=== PATIENT | female | born 1970 | race Caucasian/White ===

== ENCOUNTER → 2016-08-30 | Outpatient (CLI) | payer OTHER ==
[~2016-08-30] MED LIST: DIFLUCAN100 MG PO; FLEXERIL10 MG PO; GABAPENTIN600 MG PO; LEVAQUIN250 MG PO; LORTAB 10-3251 EACH PO; LOSARTAN-HCTZ1 EACH PO; SIMVASTATIN10 MG PO; VOLTAREN75 MG PO
--- NOTE | ~2016-08-30 | MR103 ---
[facility]. [facility] A Service of [facility] RADIOLOGY TEXT RESULTS PATIENT: MATT ULLOA LOCATION: [facility] : 72 UNIT #: [id number] AGE: [address]: Joss Villarreal MD SEX: F ORDER DR: [id number] [address] [id number] O MR#: [id number] Acc #: [id number] NAME: MATT ULLOA : 1970 SEX: F STUDY DATE/TIME: 08/30/2016 13:33 UNIT: [facility] ROOM: STUDY DESCRIPTION: MR Knee Wo Contrast Lt Attending Physician: Joss Villarreal Referring Physician: Joss Villarreal Ordering Physician: Joss Villarreal Primary Care Physician: Primary Care Physician No MRI CENTER REPORT This report is preliminary unless electronic signature is present. EXAM MRI left knee 08/30/2016 COMPARISON Left knee radiographs 12/16/2015. HISTORY Order states left knee pain, looking for meniscus tear. History sheet states no known injury. Left greater than right knee pain for several years (less than 2 years with some swelling and some instability). No reported knee surgery. FINDINGS There is a ufcy-am-kuxrwesw effusion without a popliteal cyst. There is minimal patella jyoti with lateral patellar subluxation. There is lateral patellofemoral compartment joint space narrowing and moderate to high-grade chondromalacia. There is mild patellofemoral osteophyte formation. The quadriceps and patellar tendons are intact. There is inflammation in the superficial prepatellar tendon bursal region. The cruciate ligaments are intact. Medial meniscus and MCL are normal. 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 There is low grade chondromalacia of the posterior non-weightbearing medial femoral condyle. There is moderately advanced lateral compartment arthrosis with joint space narrowing, grade 4 weightbearing chondromalacia, and marginal osteophyte formation. There is moderate grade chondromalacia in the posterior non-weightbearing lateral femoral condyle. The lateral meniscus [facility] A Service of [facility] RADIOLOGY TEXT RESULTS PATIENT: MATT ULLOA LOCATION: [facility] : 72 UNIT #: [id number] AGE: [address]: Joss Villarreal MD SEX: F ORDER DR: is extruded and demonstrates a longitudinal horizontal likely degenerative tear in its anterior half and an oblique undersurface tear of the posterior body and horn. There is no displaced meniscal flap or fragment identified. The tear has a cleavage component in midbody segment. The lateral collateral ligament complex and popliteus tendon are intact. There is no marrow lesion or fracture. Cystic enthesopathic changes are noted of the tibia near the ACL attachment. Possible chondral loose body in the anterolateral femoral gutter measuring 8 mm. IMPRESSION 1. 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 2. Mild patella jyoti, lateral subluxation, and patellofemoral arthrosis detailed above. 3. 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 4. Joint effusion with 1 possible 7-8 mm loose body. 1. Dictated by... Laura Moran M.D. THIS IS AN ELECTRONICALLY VERIFIED REPORT Laura Moran M.D. at 08/31/2016 2:58 PM [place] TD: 08/31/2016 13:30 JOB #: [id number] MRI CENTER REPORT
== END | disposition home or self-care (01) ==
LOC: SMRI 13:12
DX: M25.562 Pain in left knee (principal); M17.12 Unilateral primary osteoarthritis, left knee; S83.102A Unspecified subluxation of left knee, initial encounter; M94.262 Chondromalacia, left knee; M25.462 Effusion, left knee
CPT/HCPCS: 73721